=== PATIENT | male | born 1955 | race American Indian/Alaskan Native ===

== ENCOUNTER 2019-08-12 17:20 | Emergency (ER) | payer SELFPAY ==
--- NOTE | 2019-08-12 18:21 | Emergency Department Report ---
Blank Doc - Documentation Documentation: 64-year-old male that presents with hematuria. This initial assessment/diagnostic orders/clinical plan/treatment(s) is/are subject to change based on patient's health status, clinical progression and re- assessment by fellow clinical providers in the ED. Further treatment and workup at subsequent clinical providers discretion. Patient/guardians urged not to elope from the ED as their condition may be serious if not clinically assessed and managed. Initial orders include: 1- Patient sent to [facility] for further evaluation and treatment 2- UA
[2019-08-12 20:36] LABS: Bilirubin,Urine NEG (Negative); Blood,Urine MOD (Negative); Color,Urine Straw (Yellow); Mucus,Urine FEW /HPF; Protein,Urine <15 mg/dL mg/dL (Negative); Urobilinogen,Urine < 2.0 mg/dL (<2.0)
[2019-08-13 01:10] VITALS: BP 129/72
--- NOTE | 2019-08-13 02:25 | Ultrasound Report ---
ULTRASOUND RENAL INDICATION / CLINICAL INFORMATION: gross hematuria. COMPARISON: None available. FINDINGS: RIGHT KIDNEY: Length = 11 cm. LEFT KIDNEY: Length = 11 cm. URINARY BLADDER: No significant abnormality. FREE FLUID: None. ADDITIONAL FINDINGS: Prostate enlargement. IMPRESSION: 1. No significant abnormality. Enlarged prostate. Signer Name: Thomas Boyd MD Signed: 08/13/2019 2:21 AM Workstation Name: [employer]
--- NOTE | 2019-08-13 02:34 | Emergency Department Report ---
ED Male HPI - General Chief complaint: Urogenital-Male Stated complaint: BLOOD IN URINE Time Seen by Provider: 08/12/19 18:20 Source: patient Mode of arrival: Ambulatory Limitations: No Limitations - History of Present Illness Initial comments: Patient is a 64-year-old male who had an episode of hematuria today. Patient states he had some mild pressure while urinating but otherwise has no dysuria. He has no pain with defecation or abdominal pain at this time. Patient states he has a history of kidney stones with he did not have flank pain and no nausea vomiting. - Related Data Previous Rx's Medication Instructions Recorded Last Taken Type Ciprofloxacin HCl [Ciprofloxacin 500 mg PO Q12HR #14 tab 08/13/19 Unknown Rx TAB] Allergies Allergy/AdvReac Type Severity Reaction Status Date / Time No Known Allergies Allergy Unverified 08/12/19 17:24 ED Review of Systems ROS: Stated complaint: BLOOD IN URINE Other details as noted in HPI Comment: All other systems reviewed and negative ED Past Medical Hx - Past Medical History Previous Medical History?: Yes Hx Hypertension: Yes - Surgical History Past Surgical History?: No - Social History Smoking Status: Never Smoker - Medications Home Medications: Home Medications Medication Instructions Recorded Confirmed Last Taken Type Ciprofloxacin HCl [Ciprofloxacin 500 mg PO Q12HR #14 tab 08/13/19 Unknown Rx TAB] ED Physical Exam - General Limitations: No Limitations General appearance: alert, in no apparent distress - Head Head exam: Present: atraumatic, normocephalic - Eye Eye exam: Present: normal appearance - ENT ENT exam: Present: mucous membranes moist - Neck Neck exam: Present: normal inspection - Respiratory Respiratory exam: Present: normal lung sounds bilaterally. Absent: respiratory distress, wheezes, rales, rhonchi - Cardiovascular Cardiovascular Exam: Present: regular rate, normal rhythm. Absent: systolic murmur, diastolic murmur, rubs, gallop - GI/Abdominal GI/Abdominal exam: Present: soft, normal bowel sounds. Absent: distended, tenderness, guarding, rebound - Rectal Rectal exam: Present: deferred - Extremities Exam Extremities exam: Present: normal inspection - Back Exam Back exam: Present: normal inspection - Neurological Exam Neurological exam: Present: alert, oriented X3 - Psychiatric Psychiatric exam: Present: normal affect, normal mood - Skin Skin exam: Present: warm, dry, intact, normal color. Absent: rash ED Course Vital Signs 08/12/19 08/12/19 08/12/19 17:25 21:11 22:00 Temperature 97.8 F 98.2 F Pulse Rate 71 63 Respiratory 16 16 Rate Blood Pressure 137/78 146/81 Blood Pressure 146/81 [Left] O2 Sat by Pulse 98 98 97 Oximetry 08/13/19 01:00 Temperature Pulse Rate Respiratory Rate Blood Pressure 129/72 Blood Pressure [Left] O2 Sat by Pulse 95 Oximetry ED Medical Decision Making - Lab Data Lab Results 08/12/19 Range/Units Unknown Urine Color Straw (Yellow) Urine Turbidity Clear (Clear) Urine pH 6.0 (5.0-7.0) Ur Specific [place] 1.009 (1.003-1.030) Urine Protein <15 mg/dl (Negative) mg/dL Urine Glucose (UA) Neg (Negative) mg/dL Urine Ketones Neg (Negative) mg/dL Urine Blood Mod (Negative) Urine Nitrite Neg (Negative) Urine Bilirubin Neg (Negative) Urine Urobilinogen < 2.0 (<2.0) mg/dL Ur Leukocyte Esterase Neg (Negative) Urine WBC (Auto) 2.0 (0.0-6.0) /HPF Urine RBC (Auto) 92.0 (0.0-6.0) /HPF Urine Mucus Few /HPF - Radiology Data Radiology results: report reviewed (ultrasound of the bilateral kidneys showed no obstructive process and there is no masses associated with the kidneys. Patient does have enlarged prostate.) - Medical Decision Making Patient is a 64-year-old male who is presenting with some gross hematuria. Patient has no urinary obstruction. Patient is in no pain at this time. Patient is to states he does not take blood thinners. Patient has no evidence of a urinary tract infection. Regarding the patient's enlarged prostate is unlikely the patient has prostatitis as he has no pain with defecation and does not appear ill and denies fevers and chills. Patient's ultrasound is negative for kidney mass they can be seen on ultrasound. Patient be referred to urology for follow-up. Patient could have had a small passed kidney stone as he doesn't a history of kidney stones. The patient's bleeding does not stop. Have follow-up with urology for possible cystoscopy. Critical care attestation.: If time is entered above; I have spent that time in minutes in the direct care of this critically ill patient, excluding procedure time. ED Disposition Clinical Impression: Hematuria Qualifiers: Hematuria type: gross Qualified Code(s): R31.0 - Gross hematuria Disposition: TO HOME OR SELFCARE Is pt being admited?: No Does the pt Need Aspirin: No Condition: Stable Instructions: Acute Hematuria (ED) Referrals: ACACIA SHAH MD [Staff Physician] - 3-5 Days Time of Disposition: 02:33
[2019-08-13] MEDS ORDERED: LEVAQUIN PO ONE (02:46)
== END 2019-08-13 03:01 | disposition home or self-care (01) ==
LOC: ED 17:20
DX: R31.0 Gross hematuria (principal); I10 Essential (primary) hypertension; Z87.442 Personal history of urinary calculi; Z79.899 Other long term (current) drug therapy
CPT/HCPCS: 76770; 81001; 87086; 99284